=== PATIENT | male | born 1980 | race Caucasian/White ===

== ENCOUNTER 2020-09-25 10:05 | Emergency (ER) | payer OTHER, SELFPAY ==
[2020-09-25 10:05] VITALS: BP 140/91; PULSE 71; RESP 16; TEMP 36.5; O2SAT 99; BMI 29.1
--- NOTE | 2020-09-25 10:25 | RAD_ITS ---
STUDY: X-RAY CHEST REASON FOR EXAM: Male, 39 years old. Chest tightness TECHNIQUE: PA and lateral views of the chest. COMPARISON: Comparison is made with prior study of 08/27/2016. FINDINGS: EKG electrodes are seen. The lungs are clear and expanded. There is no demonstrated pleural abnormality. Normal size heart. Normal mediastinum and monique. Normal visualized pulmonary arteries. Normal visualized aortic arch and descending thoracic aorta. Normal visualized thoracic spine. Normal visualized ribs, clavicles, and shoulders. There is no demonstrated abnormality of the visualized soft tissue structures of the upper abdomen. RAD/Chest PA and Lateral IMPRESSION: Normal x-ray examination of the chest. Electronically Signed: López Martin MD at 11:21 EST , Service support ,
--- NOTE | 2020-09-25 10:41 | EKG12_ITS ---
Test Reason : CP Blood Pressure : / mmHG Vent. Rate : 067 BPM Atrial Rate : 067 BPM P-R Int : 182 ms QRS Dur : 100 ms QT Int : 416 ms P-R-T Axes : 065 -17 004 degrees QTc Int : 439 ms Normal sinus rhythm Normal ECG Confirmed by MIRELLA OLIVA, JEMIMA ([id number]), news videotape editor ZHENG GALLEGO ([id number]) on 09/30/2020 2:17:08 PM Referred By: ISAIAS/REJI Confirmed By:JEMIMA VU MD
[2020-09-25 10:45] LABS: Absolute Lymphocyte Count 2.92 X10^3/uL (0.83-4.51); Absolute Neutrophil Count 3.6 X10^3/uL (2.0-7.7); Basophil# 0.04 X10^3/uL; Basophil% 0.6 % (0-1); Eosinophil# 0.11 X10^3/uL; Eosinophils% 1.5 % (0-5); Hematocrit 47.6 % (40-54); Hemoglobin 16.4 g/dL (13.0-16.5); Lymphocyte # 2.92 X10^3/ul (4.0); Lymphocyte % 40.7 % (19-41); Mean Corp Hgb Conc 34.5 g/dL (32-36); Mean Corpuscular Hgb 28.9 pg (27.0-32.0); Mean Platelet Vol. 9.7 fl (6.2-12.0); NRBC Flagged by Analyzer 0 % (0-5); Neutrophil # 3.57 X10^3/uL (2.7-7.7); Neutrophil % 49.8 % (47-70); Platelet Count 233 K/mm3 (150-450); RBC Distribution Width CV 12.3 % (11.6-14.6); RBC Distribution Width SD 37.2 fl (35.1-43.9); Red Blood Count 5.67 M/mm3 (4.6-6.2); White Blood Count 7.2 K/mm3 (4.4-11.0)
--- NOTE | 2020-09-25 10:51 | ED.VIS.GEN ---
History of Present Illness Chief Complaint: Chest Pain Informant: Patient, Family Narrative: Patient is a 39-year-old previously healthy male who presents to the emergency department for intermittent chest tightness. His initial symptoms started last week. He does not know aggravating or relieving factors. He currently has chest tightness across the anterior chest bilaterally. He denies any shortness of breath. He has not been coughing. No radiation of the pain to his abdomen, back or arms/jaw. He did have a similar episode like this for years ago and had a work-up including echocardiogram and stress test which was negative. He was diagnosed with pneumonia at that time. Has any fevers or chills. No leg swelling or calf pain. No history of CAD, DVT/PEs. Denies any long periods of immobilization. No family history of cardiac disease at a young age. He denies a smoking history. He has not tried taking anything for this. Past Medical History - Allergies and Home Meds Allergies/Adverse Reactions: Allergies No Known Allergies Allergy (Verified 09/25/20 10:07) Primary Care Physician: NOT,DEFINED [NON-STAFF] - Prior records reviewed: Yes Past Medical History: None Surgical History: no surgical history Smoking Status: Never smoker Review of Systems All systems negative except as indicated General: Denies: Chills, Fever, Sweats Eyes: Denies: Visual changes - bilaterally, Diplopia ENT: Denies: Rhinorrhea, Sore throat Cardiovascular: Reports: Chest pain - Tightness. Denies: Palpitations Respiratory: Denies: Dyspnea, Cough, Dyspnea on exertion Gastrointestinal: Denies: Abdominal pain, Nausea, Vomiting, Diarrhea, Melena, Hematochezia Genitourinary: Denies: Dysuria, Hematuria, Frequency Musculoskeletal: Denies: Back pain, Extremity Pain Skin: Denies: Rash, Wounds Neurological: Denies: Headache, Weakness, Numbness Physical Exam Vital Signs/Narrative: Vital Signs Temp Pulse Resp BP Pulse Ox 09/25/20 10:05 97.7 F L 71 16 140/91 H 99 Inital Vital Signs reviewed: Yes General: Well nourished, Well developed, No Acute Distress Head: Normocephalic, Atraumatic Eyes: Perrl, EOMI ENT: Moist mucous membranes, No rhinorrhea Neck: Supple, Nontender Cardiovascular: Regular rate, Regular rhythm, No murmurs Respiratory: No distress, CTA bilaterally, Chest nontender Abdomen: Soft, Nontender, Nondistended, Normal bowel sounds Back: Nontender, Normal Inspection Extremities: Nontender, No edema. Negative for: Calf Tenderness Skin: Normal color, No rash Neurological: Alert, Oriented x3, Cranial nerves II-XII grossly intact, Normal Strength, Normal Sensation Psychological: Normal affect, Normal Mood Diagnostic/Tx/Re-eval Chest X-Ray - ED: 2 View - 2 view x-ray interpreted by myself. Clear lung kuhn bilaterally. No consolidation. No pleural effusions. Normal cardiac silhouette. - EKG Initial EKG Interpretation: - - Rate of 67 bpm and normal sinus rhythm. Normal intervals. Left axis deviation. No significant ST elevations or depressions. No T wave abnormalities. - Medical Decision Making Patient presents to the ED for chest tightness. Upon arrival to the emergency department vital signs within normal limits. Satting 100% on room air. No apparent distress. Patient has a PERC score of 0. He has heart score of 0. Will check basic lab work including EKG, chest x-ray and basic lab work. He believes that there might be some anxiety component to his symptoms. His initial troponin is negative. D-dimer is negative. Chest x-ray does not show any signs of acute cardiopulmonary abnormality. EKG does not show any signs of ischemia or arrhythmia. I do not feel this is ACS, PE or dissection. Patient does not have any wheezing on physical exam but with the chest tightness I did offer an albuterol prescription to see if this gives him any relief. If this does not help he should discontinue it. He is to follow-up with his PCP for further evaluation and work-up of this. Develops any worsening symptoms or concerning symptoms he can return anytime to the emergency department for continued evaluation. Patient is agreeable with this plan. He is discharged home in stable condition. All questions were answered. ED Disposition - Plan for ED Patient: Disposition: Home or Assisted Living Diagnosis: Tightness in chest Instructions: ED Chest Pain, Noncardiac Prescriptions: Albuterol Inhaler [Ventolin Hfa] 1 - 2 puff INHALATION Q4H PRN PRN #1 inhaler PRN Reason: Wheezing Prescription Printed Referrals: NOT,DEFINED [NON-STAFF] - Additional Instructions: Please follow-up with your PCP in the next 2 to 3 days. You can return to the emergency department anytime for worsening or concerning symptoms.
[2020-09-25 10:55] LABS: D-Dimer Quantitative (DVT/PE) <= 0.27 FEU/ug/m (0.27-0.49)
[2020-09-25 11:02] LABS: Anion Gap 5 (5-15); BUN 13 mg/dL (7-18); BUN/Creat Ratio 12.1 RATIO (10-20); Calcium,Total 9.2 mg/dL (8.5-10.1); Chloride 106 mmol/L (98-107); Creatinine, Serum 1.07 mg/dL (0.70-1.30); EST Glomerular Filtration Rate 81 mL/min (>60); Est Glom Filt Rate - Afr Amer 98 mL/min (>60); Estimated Creatinine Clearance 100.73 ml/min; Glucose 101 mg/dL (74-106); Potassium 3.8 mmol/L (3.5-5.1); Sodium Level 140 mmol/L (136-145)
[2020-09-25 11:43] VITALS: BP 131/83; PULSE 76; RESP 15; O2SAT 98
== END 2020-09-25 11:43 | disposition home or self-care (01) ==
PROVIDERS: Emergency Provider Emergency Medicine
DX: R07.89 Other chest pain (principal)
CPT/HCPCS: 71046; 80048; 84484; 85025; 85379; 93005; 99284; A4216

== ENCOUNTER → 2022-02-19 | Outpatient (CLI) | payer OTHER, SELFPAY ==
--- NOTE | 2022-02-19 08:22 | LIP_PTH ---
PATIENT: YINA BERRY LOC: [facility] U#:[id number] AGE/SX: 41/M ROOM: RE02/19/[address]: Dr. Jeffery Dean MD : 1980 BED: DIS: 02/19/2022 SPEC #: [id number] RECD: 02/19/22 10:40 STATUS: [place] REJeovanny #: [id number] STERLING: 02/19/22 08:[address]: Jeffery Dean DEPT: SURGICAL PATHOLOGY RECD BY: Julio Segovia ENTERED: 02/19/22 11:12 SP TYPE: LIPOMA OTHR DR: No Primary Care Phys Tissues: A - Soft tissues, NOS B - Soft tissues, NOS Procedures: Surgery Specimen Level III HEADER OPERATION: Excision of lipomas on right arm x3 PRE-OP DIAGNOSIS: Lipomas TISSUE SUBMITTED: A ? Right arm bicep, B ? Right arm triceps MICROSCOPIC DIAGNOSIS A. Right bicep lipomas, excision: Angiolipomas x2. B. Right triceps lipoma, excision. Angiolipoma. MILENA:beronica 02/20/2022 MICROSCOPIC DESCRIPTION Slides are reviewed. GROSS DESCRIPTION A - Received in fixative is one container labeled with the patient's name and designated right bicep lipoma. The specimen consists of two pieces of lobulated yellow adipose tissue measuring 2.5 x 1.5 x 0.6 cm and 2.5 x 2.5 x 1.5 cm. Sections reveal yellow adipose cut surfaces without area of hemorrhage, necrosis or cystic degeneration. [employer] Foreperson sections are submitted in two cassettes. Cassette 1 contains the smaller piece and 2 contains the larger piece. B - Received in fixative is one container labeled with the patient's name and designated right triceps lipoma. The specimen consists of a piece of yellow adipose tissue measuring 2 x 1.6 x 1 cm. Sections reveal yellow adipose cut surfaces without area of hemorrhage, necrosis or cystic degeneration. Underground Production Foreperson sections are submitted in two cassettes. / MILENA:beronica 02/19/2022 TC:1 CPT: 61192 x2
== END | disposition home or self-care (01) ==
LOC: LABSPEC 10:44
PROVIDERS: Referring Provider Surgery; Visit Provider Surgery
DX: D17.21 Benign lipomatous neoplasm of skin and subcutaneous tissue of right arm (principal)
CPT/HCPCS: 88304

== ENCOUNTER → 2024-11-09 | Outpatient (CLI) | payer OTHER, SELFPAY ==
[2024-11-09 13:00] LABS: Absolute Lymphocyte Count 2.09 X10^3/uL (0.83-4.51); Absolute Neutrophil Count 2.7 X10^3/uL (2.0-7.7); Basophil# 0.03 X10^3/uL; Basophil% 0.6 % (0-1); Eosinophil# 0.03 X10^3/uL; Eosinophils% 0.6 % (0-5); Hematocrit 43.1 % (40-54); Hemoglobin 15.3 g/dL (13.0-16.5); Lymphocyte # 2.09 X10^3/ul (0.83-4.51); Lymphocyte % 39.7 % (19-41); Mean Corp Hgb Conc 35.5 g/dL (32-36); Mean Corpuscular Hgb 30.3 pg (27.0-32.0); Mean Corpuscular Volume 85.3 fL (80-94); Mean Platelet Vol. 9.8 fl (6.2-12.0); Monocyte# 0.41 X10^3/uL; Monocyte% 7.8 % (0-10); NRBC Flagged by Analyzer 0 % (0-5); Neutrophil # 2.69 X10^3/uL (2.7-7.7); Neutrophil % 51.1 % (47-70); Platelet Count 213 K/mm3 (150-450); RBC Distribution Width CV 12.5 % (11.6-14.6); RBC Distribution Width SD 38.5 fl (35.1-43.9); Red Blood Count 5.05 M/mm3 (4.6-6.2); White Blood Count 5.3 K/mm3 (4.4-11.0)
[2024-11-09 13:38] LABS: ALB/GLOB Ratio 1.6 RATIO (0.9-2.4); AST(SGOT) 27 U/L (<=37); Alanine Aminotransfer ALT/SGPT 21 U/L (<=46); Albumin, Serum 4.5 g/dL (3.5-5.0); Alkaline Phosphatase 70 U/L (40-129); Anion Gap 11 (5-15); BUN 17 mg/dL (4-19); BUN/Creat Ratio 17.2 RATIO (10-20); Calcium,Total 9.5 mg/dL (7.6-11.0); Carbon Dioxide 23.4 mmol/L (21.0-32.0); Chloride 105 mmol/L (98-108); Cholesterol 142 mg/dL (<=200); Creatinine, Serum 1.01 mg/dL (0.70-1.20); EST Glomerular Filtration Rate 94 (>60); Globulin 2.7 g/dL (2.2-4.2); Glucose 94 mg/dL (70-99); High Density Lipoprotein 38 mg/dL; Low Density Lipoprotein Calc. 86 mg/dL; Potassium 4.5 mmol/L (3.3-5.1); Protein, Total 7.2 g/dL (5.9-8.4); Sodium Level 139 mmol/L (133-145); Total Bilirubin 0.37 mg/dL (0.00-1.30); Triglycerides 90 mg/dL; Very Low Density Lipoprotein 18 mg/dL (5-40); cholesterol:hdl ratio screen 3.77
== END | disposition home or self-care (01) ==
LOC: BIMLAB 08:36
PROVIDERS: Visit Provider Internal Medicine
DX: Z00.00 Encounter for general adult medical examination without abnormal findings (principal); Z13.6 Encounter for screening for cardiovascular disorders
CPT/HCPCS: 36415; 80053; 80061; 85025

== ENCOUNTER → 2024-12-01 | Outpatient (CLI) | payer OTHER, SELFPAY ==
--- NOTE | 2024-12-01 14:03 | MRI_ITS ---
PROCEDURE: BRAIN W/WO CONTRAST 12/01/2024 REASON FOR EXAM: CHRONIC TINNITUS, LYMPHADENOPATHY TECHNIQUE: Brain MRIwithout and with intravenous contrast with additional dedicated imaging of the IACs. Multiplanar and multisequence images were obtained. CONTRAST: COMPARISON: none FINDINGS: No hyperacute or acute infarctions could be depicted. No obvious enhancing masses. Normal MRI appearance of the cerebral and cerebellar parenchymal signals. Normal MRI appearance of different anatomical parts of the brain stem. Normal appearance of the ventricular system. No shift of midline structures. Right anterior inferior cerebellar artery type II vascular loop. Normal appearance of the 7th and 8th cranial nerves. Normal MRI appearance of the petrous temporal bones and cerebellopontine angles with no obvious masses. Normal MRI appearance of orbital structures, both globes, optic nerves, optic chiasm, optic tracts and optic radiations. Scanned paranasal sinuses show no obvious abnormalities. MRI/Brain W/WO Contrast IMPRESSION: Unremarkable study of the brain with no intracerebral or extra-axial hematomas or obvious ischemic changes. Right anterior inferior cerebellar artery type II vascular loop. [facility] [address]
== END | disposition home or self-care (01) ==
PROVIDERS: Referring Provider Internal Medicine; Visit Provider Internal Medicine
DX: H93.12 Tinnitus, left ear (principal); R59.0 Localized enlarged lymph nodes
CPT/HCPCS: 70553; A9575

== ENCOUNTER 2025-02-06 08:19 | Day surgery (SDC) | payer OTHER, SELFPAY ==
[2025-02-06] VITALS (8 sets, daily range): BP systolic 97–131; BP diastolic 65–84; PULSE 62–78; RESP 16–17; TEMP 36.2; O2SAT 95–100; BMI 27.8
[2025-02-06] MEDS: Lactated Ringers 1,000 ML 15 ML IV (08:44)
--- NOTE | 2025-02-06 08:55 | PCM.PRE.AN2 ---
ASA Classification* ASA Classification ASA Classification: 2 Assessment & Plan Anesthesia* Anesthesia Assessment Anesthesia Assessment: Discussed sedation and/or anesthesia options, risks, benefits, and alternatives with patient/parents/legal guardian/POA. Questions invited. The patient/parents/legal guardian/POA seems to understand and agrees to proceed with anesthesia plan. Reviewed the physical assessment, medical history, allergy history and patient home medications list prior to surgery/procedure/anesthetic and documented any changes. Performed airway and anesthesia risk assessments. Anesthesia Type Anesthesia Type: MAC History Source History Obtained from:: Patient and Chart Anesthesia Focused Assessment* Temperature: 97.2 F Pulse Rate: 78 Blood Pressure: 131/80 Respiratory Rate: 17 Pulse Ox: 99 Oxygen Delivery Method: Room Air Airway Assessment Mouth opens: >3 cm Mallampati Score: II Teeth Condition: Caps/Crowns (Patient has several crowns. They are all tight.) Neck Range of motion (ROM): Full ROM Labs Anesthesia Preop lab: CBC WBC 5.3 K/mm3 (4.4-11.0) 11/09/24 08:37 11/09/24 RBC 5.05 M/mm3 (4.6-6.2) 11/09/24 08:37 11/09/24 Hgb 15.3 g/dL (13.0-16.5) 11/09/24 08:37 11/09/24 Hct 43.1 % (40-54) 11/09/24 08:37 11/09/24 Plt Count 213 K/mm3 (150-450) 11/09/24 08:37 11/09/24 CHEMISTRY Potassium 4.5 mmol/L (3.3-5.1) 11/09/24 08:37 11/09/24 Sodium 139 mmol/L (133-145) 11/09/24 08:37 11/09/24 BUN 17 mg/dL (4-19) 11/09/24 08:37 11/09/24 Creatinine 1.01 mg/dL (0.70-1.20) 11/09/24 08:37 11/09/24 Glucose 94 mg/dL (70-99) 11/09/24 08:37 11/09/24 TSH 0.79 uIU/mL (0.358-3.74) 08/27/16 14:18 08/27/16 COAG Pre-Assessment Diagnosis/Proposed Procedure Planned Operative Procedure(s): COLONOSCOPY Anesthesia History Anesthesia History - box person: Anesthesia History - box person Hx Hospitalization No 02/01/25 12:52 Any Problems With Anesthesia No 02/01/25 12:52 Cholinesterase deficiency No 02/01/25 12:52 You/Your Family Experience No 02/01/25 12:52 fever (hyperthermia) with Relationship Recent Exposure to Contagious No 02/06/25 08:41 Disease Does patient have nerve No 02/01/25 12:52 stimulator Patient instructed to have device shut off --Does patient have Pacemaker No 02/06/25 08:41 or ICD? When Was Last Pacemaker Check QUESTION #4 FULL TEXT: You/Your Family Experience fever (hyperthermia) with Anesthesia Last Oral Intake Last Oral intake: Last Oral Intake NPO since 00:00 02/06/25 08:41 Meds taken in AM with sips of No 02/06/25 08:41 water? Meds patient instructed to take am of surgery PONV PONV - box person: PONV - box person Female No 02/01/25 12:52 HX of Motion Sickness No 02/01/25 12:52 HX of N/V After Surgery No 02/01/25 12:52 Non-Smoker Yes 02/01/25 12:52 Duration of Surgery greater No 02/01/25 12:52 than 60 minutes Number of Risk Factors 1 02/01/25 12:52 PONV Score Low Risk 02/01/25 12:52 Height & Weight Height & Weight: Anesthesia: Height & Weight Height 6 ft 02/06/25 08:41 Weight: 93 kg 02/06/25 08:41 Body Mass Index (BMI) 27.8 02/06/25 08:41 Respiratory Assessment Respiratory Assessment - box person: Respiratory Tract Infection Hx - box person Hx Respiratory Tract Infection No 02/01/25 12:52 STOP Sleep Apnea STOP Sleep Apnea - box person: STOP Sleep Apnea - box person Hx Hypertension No 02/01/25 12:52 Hx Sleep Apnea No 02/01/25 12:52 CPAP BIPAP Do you snore loudly (louder Yes 02/01/25 12:52 than talking or can be heard Do you often feel tired/ No 02/01/25 12:52 fatigued/ sleepy during daytime? Has anyone observed you stop No 02/01/25 12:52 breathing during sleep? STOP Results Negative 02/01/25 12:52 QUESTION #5 FULL TEXT : Do you snore loudly (louder than talking or can be heard through closed doors)? 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 Specify any problems Hx of Preganancy in last 3 N/A 02/01/25 12:52 Months Nurse Filling Out Transfusion [email or web address] 02/01/25 12:52 & Questions: Date: 02/01/25 02/01/25 12:52 Time: 12:53 02/01/25 12:52 Patient unable to answer at this time (ie. confused, unrespo /Reproduction History /Reproductive History - box person: /Reproductive Hx- box person Hx Now No 02/01/25 12:52 Gestational Age (in weeks): EDC: Hx Hx Para Hx Section SAB No 02/01/25 12:52 Active Medications Active Medications: Current Medications Generic Name Dose Route Start Last Admin Trade Name Freq PRN Reason Stop Dose Admin Lactated Ringer's 1,000 mls @ 15 mls/hr 02/06/25 08:30 02/06/25 08:44 IV 15 mls/hr .Q48H ANJANA Administration PFSH Medical History Wears glasses Wears contact lenses Non-smoker History of echocardiogram History of stress test Pneumonia Chronic headaches Multiple lipomas Hemorrhoids Home Medications ?Medication ?Instructions ?Recorded ?Last Taken ?Type ivyazoin-zagftkkq-rgepw acid 400 1 tab PO DAILY 11/09/24 02/05/25 History mcg-vit K 20 mcg-lycop 300 mcg tablet (Men's One Daily) Lactobacillus acidophilus 10 100 mmu cells PO DAILY 02/01/25 02/05/25 History billion cell capsule (NewFlora) wheat germ oil 45 mg PO DAILY 02/01/25 02/05/25 History Allergy/AdvReac Type Severity Reaction Status Date / Time No Known Allergies Allergy Verified 02/06/25 08:40 Family History Mother Colon cancer, Onset Age: 60 Brother Cancer skin Grandmother Colon cancer Surgical History Hx of lipoma Social History adopted: No household members: spouse number of children: 0 current occupational status: employed 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 animals: No sexually active: Yes Smoking Status: Never smoker alcohol intake: current alcohol intake frequency: a few times a week details: when used typically under 3 drinks substance use type: does not use caffeine: Yes (4) Type: coffee frequency: 5-6 times per week do you feel safe at home: Yes Review of Systems (Anesthesia) ROS Narrative System reviewed and no additional complaints, except as documented.
--- NOTE | 2025-02-06 08:55 | PCM.PRE.AN2 ---
ASA Classification* ASA Classification ASA Classification: 2 Assessment & Plan Anesthesia* Anesthesia Assessment Anesthesia Assessment: Discussed sedation and/or anesthesia options, risks, benefits, and alternatives with patient/parents/legal guardian/POA. Questions invited. The patient/parents/legal guardian/POA seems to understand and agrees to proceed with anesthesia plan. Reviewed the physical assessment, medical history, allergy history and patient home medications list prior to surgery/procedure/anesthetic and documented any changes. Performed airway and anesthesia risk assessments. Anesthesia Type Anesthesia Type: MAC History Source History Obtained from:: Patient and Chart Anesthesia Focused Assessment* Temperature: 97.2 F Pulse Rate: 78 Blood Pressure: 131/80 Respiratory Rate: 17 Pulse Ox: 99 Oxygen Delivery Method: Room Air Airway Assessment Mouth opens: >3 cm Mallampati Score: II Teeth Condition: Caps/Crowns (Patient has several crowns. They are all tight.) Neck Range of motion (ROM): Full ROM Labs Anesthesia Preop lab: CBC WBC 5.3 K/mm3 (4.4-11.0) 11/09/24 08:37 11/09/24 RBC 5.05 M/mm3 (4.6-6.2) 11/09/24 08:37 11/09/24 Hgb 15.3 g/dL (13.0-16.5) 11/09/24 08:37 11/09/24 Hct 43.1 % (40-54) 11/09/24 08:37 11/09/24 Plt Count 213 K/mm3 (150-450) 11/09/24 08:37 11/09/24 CHEMISTRY Potassium 4.5 mmol/L (3.3-5.1) 11/09/24 08:37 11/09/24 Sodium 139 mmol/L (133-145) 11/09/24 08:37 11/09/24 BUN 17 mg/dL (4-19) 11/09/24 08:37 11/09/24 Creatinine 1.01 mg/dL (0.70-1.20) 11/09/24 08:37 11/09/24 Glucose 94 mg/dL (70-99) 11/09/24 08:37 11/09/24 TSH 0.79 uIU/mL (0.358-3.74) 08/27/16 14:18 08/27/16 COAG Pre-Assessment Diagnosis/Proposed Procedure Planned Operative Procedure(s): COLONOSCOPY Anesthesia History Anesthesia History - bill of lading clerk: Anesthesia History - bill of lading clerk Hx Hospitalization No 02/01/25 12:52 Any Problems With Anesthesia No 02/01/25 12:52 Cholinesterase deficiency No 02/01/25 12:52 You/Your Family Experience No 02/01/25 12:52 fever (hyperthermia) with Relationship Recent Exposure to Contagious No 02/06/25 08:41 Disease Does patient have nerve No 02/01/25 12:52 stimulator Patient instructed to have device shut off --Does patient have Pacemaker No 02/06/25 08:41 or ICD? When Was Last Pacemaker Check QUESTION #4 FULL TEXT: You/Your Family Experience fever (hyperthermia) with Anesthesia Last Oral Intake Last Oral intake: Last Oral Intake NPO since 00:00 02/06/25 08:41 Meds taken in AM with sips of No 02/06/25 08:41 water? Meds patient instructed to take am of surgery PONV PONV - bill of lading clerk: PONV - bill of lading clerk Female No 02/01/25 12:52 HX of Motion Sickness No 02/01/25 12:52 HX of N/V After Surgery No 02/01/25 12:52 Non-Smoker Yes 02/01/25 12:52 Duration of Surgery greater No 02/01/25 12:52 than 60 minutes Number of Risk Factors 1 02/01/25 12:52 PONV Score Low Risk 02/01/25 12:52 Height & Weight Height & Weight: Anesthesia: Height & Weight Height 6 ft 02/06/25 08:41 Weight: 93 kg 02/06/25 08:41 Body Mass Index (BMI) 27.8 02/06/25 08:41 Respiratory Assessment Respiratory Assessment - bill of lading clerk: Respiratory Tract Infection Hx - bill of lading clerk Hx Respiratory Tract Infection No 02/01/25 12:52 STOP Sleep Apnea STOP Sleep Apnea - bill of lading clerk: STOP Sleep Apnea - bill of lading clerk Hx Hypertension No 02/01/25 12:52 Hx Sleep Apnea No 02/01/25 12:52 CPAP BIPAP Do you snore loudly (louder Yes 02/01/25 12:52 than talking or can be heard Do you often feel tired/ No 02/01/25 12:52 fatigued/ sleepy during daytime? Has anyone observed you stop No 02/01/25 12:52 breathing during sleep? STOP Results Negative 02/01/25 12:52 QUESTION #5 FULL TEXT : Do you snore loudly (louder than talking or can be heard through closed doors)? 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 Specify any problems Hx of Preganancy in last 3 N/A 02/01/25 12:52 Months Nurse Filling Out Transfusion [email or web address] 02/01/25 12:52 & Questions: Date: 02/01/25 02/01/25 12:52 Time: 12:53 02/01/25 12:52 Patient unable to answer at this time (ie. confused, unrespo /Reproduction History /Reproductive History - bill of lading clerk: /Reproductive Hx- bill of lading clerk Hx Now No 02/01/25 12:52 Gestational Age (in weeks): EDC: Hx Hx Para Hx Section SAB No 02/01/25 12:52 Active Medications Active Medications: Current Medications Generic Name Dose Route Start Last Admin Trade Name Freq PRN Reason Stop Dose Admin Lactated Ringer's 1,000 mls @ 15 mls/hr 02/06/25 08:30 02/06/25 08:44 IV 15 mls/hr .Q48H ANJANA Administration PFSH Medical History Wears glasses Wears contact lenses Non-smoker History of echocardiogram History of stress test Pneumonia Chronic headaches Multiple lipomas Hemorrhoids Home Medications ?Medication ?Instructions ?Recorded ?Last Taken ?Type gaqurwop-gktqblje-sqrkh acid 400 1 tab PO DAILY 11/09/24 02/05/25 History mcg-vit K 20 mcg-lycop 300 mcg tablet (Men's One Daily) Lactobacillus acidophilus 10 100 mmu cells PO DAILY 02/01/25 02/05/25 History billion cell capsule (NewFlora) wheat germ oil 45 mg PO DAILY 02/01/25 02/05/25 History Allergy/AdvReac Type Severity Reaction Status Date / Time No Known Allergies Allergy Verified 02/06/25 08:40 Family History Mother Colon cancer, Onset Age: 60 Brother Cancer skin Grandmother Colon cancer Surgical History Hx of lipoma Social History adopted: No household members: spouse number of children: 0 current occupational status: employed 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 animals: No sexually active: Yes Smoking Status: Never smoker alcohol intake: current alcohol intake frequency: a few times a week details: when used typically under 3 drinks substance use type: does not use caffeine: Yes (4) Type: coffee frequency: 5-6 times per week do you feel safe at home: Yes Review of Systems (Anesthesia) ROS Narrative System reviewed and no additional complaints, except as documented.
--- NOTE | 2025-02-06 09:41 | HP.PCM_ITS ---
HPI - General HPI Narrative YINA BERRY, is a 44 M who presents for screening colonoscopy. The patient has never had a colonoscopy in the past. He denies abdominal pain or blood in the stool. He does have family history of colon cancer in his mother in her 60s. REPLACED BY [facility] Medical History Wears glasses Wears contact lenses Non-smoker History of echocardiogram History of stress test Pneumonia Chronic headaches Multiple lipomas Hemorrhoids Home Medications ?Medication ?Instructions ?Recorded ?Last Taken ?Type hgksqvkj-rnakassy-dvnft acid 400 1 tab PO DAILY 02/05/25 History mcg-vit K 20 mcg-lycop 300 mcg tablet (Men's One Daily) Lactobacillus acidophilus 10 100 mmu cells PO DAILY 02/05/25 History billion cell capsule (NewFlora) wheat germ oil 45 mg PO DAILY 02/01/2501/23 History Allergy/AdvReac Type Severity Reaction Status Date / Time No Known Allergies Allergy Verified 02/06/25 08:40 Family History Mother Colon cancer, Onset Age: 60 Brother Cancer skin Grandmother Colon cancer Surgical History Hx of lipoma Social History adopted: No household members: spouse number of children: 0 current occupational status: employed 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 animals: No sexually active: Yes Smoking Status: Never smoker alcohol intake: current alcohol intake frequency: a few times a week details: when used typically under 3 drinks substance use type: does not use caffeine: Yes (4) Type: coffee frequency: 5-6 times per week do you feel safe at home: Yes Past Medical/Surgical History Planned Operation Planned Operative Procedure(s): COLONOSCOPY Previous Hospitalizations/Surgeries HX Hospitalizations: No Any Problems With Anesthesia: No You/Your Family Experience Fever (Hyperthermia) With Anes: No Cholinesterase deficiency: No Cardiovascular Hx Hypertension: No Respiratory Hx Sleep Apnea: No Hx Respiratory Tract Infection/Cold (presently): No Do You Snore Loudly (louder than talking or can be heard): Yes Do You Often Feel Tired/ Fatigued/ Sleepy Dring Daytime?: No Has Anyone Observed You Stop Breathing During Sleep?: No Result (for STOP score): Negative Smoking Status: Never smoker Neurological Does patient have nerve stimulator: No Reproduction : No Miscellaneous Recent Exposure to Contagious Disease: No Allergies No Known Allergies Allergy (Verified 02/06/25 08:40) Discharge After D/C, Where Do you Plan to Go: Return Home Vital Signs Vital Signs Vital Signs: 02/06/25 08:41 02/06/25 08:41 02/06/25 09:00 Temperature 97.2 F L 97.2 F L Temperature Source Temporal Pulse Rate 78 78 Respiratory Rate 17 17 Respiratory Pattern Normal Blood Pressure 131/80 H 131/80 H Blood Pressure Mean 97 Blood Pressure Source Monitor Blood Pressure Position Semi-Fowlers Blood Pressure Location Left Arm Pulse Ox 99 99 Oxygen Delivery Method Room Air Room Air Weight Weight: 205 lb 0.478 oz Body Mass Index (BMI) 27.8 Physical Exam Const alert and oriented x3 HEENT normocephalic Eyes PERRL Resp normal respiratory effort and normal air movement Cardio regular rate and regular rhythm GI soft to palpation, non-tender and non-distended Extremity normal to inspection Assessment & Plan Assessment/Plan (1) Screen for colon cancer: PLAN: I explained endoscopy in detail to the patient. I explained the risks inc luding but not limited to stroke or heart attack with anesthesia, perforation of the GI tract, bleeding, infection. I explained that any of these could necessitate further emergency surgery. The patient understands and all questions were answered sufficiently. The patient wishes to proceed with procedure. Jeffery Dean MD Pager: [facility] [address] [place] [address], [address] [place] [address] Office: Surgery Risks - Colonoscopy Risks Include but are not Limited To: Risks include but are not limited to: Bleeding, perforation requiring further surgery, inability to complete colonoscopy requiring barium enema.
--- NOTE | 2025-02-06 09:41 | HP.PCM_ITS ---
HPI - General HPI Narrative YINA BERRY, is a 44 M who presents for screening colonoscopy. The patient has never had a colonoscopy in the past. He denies abdominal pain or blood in the stool. He does have family history of colon cancer in his mother in her 60s. [facility] Medical History Wears glasses Wears contact lenses Non-smoker History of echocardiogram History of stress test Pneumonia Chronic headaches Multiple lipomas Hemorrhoids Home Medications ?Medication ?Instructions ?Recorded ?Last Taken ?Type mckmwsyn-iucfwafm-ruqty acid 400 1 tab PO DAILY 02/05/25 History mcg-vit K 20 mcg-lycop 300 mcg tablet (Men's One Daily) Lactobacillus acidophilus 10 100 mmu cells PO DAILY 02/05/25 History billion cell capsule (NewFlora) wheat germ oil 45 mg PO DAILY 02/01/2501/23 History Allergy/AdvReac Type Severity Reaction Status Date / Time No Known Allergies Allergy Verified 02/06/25 08:40 Family History Mother Colon cancer, Onset Age: 60 Brother Cancer skin Grandmother Colon cancer Surgical History Hx of lipoma Social History adopted: No household members: spouse number of children: 0 current occupational status: employed 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 animals: No sexually active: Yes Smoking Status: Never smoker alcohol intake: current alcohol intake frequency: a few times a week details: when used typically under 3 drinks substance use type: does not use caffeine: Yes (4) Type: coffee frequency: 5-6 times per week do you feel safe at home: Yes Past Medical/Surgical History Planned Operation Planned Operative Procedure(s): COLONOSCOPY Previous Hospitalizations/Surgeries HX Hospitalizations: No Any Problems With Anesthesia: No You/Your Family Experience Fever (Hyperthermia) With Anes: No Cholinesterase deficiency: No Cardiovascular Hx Hypertension: No Respiratory Hx Sleep Apnea: No Hx Respiratory Tract Infection/Cold (presently): No Do You Snore Loudly (louder than talking or can be heard): Yes Do You Often Feel Tired/ Fatigued/ Sleepy Dring Daytime?: No Has Anyone Observed You Stop Breathing During Sleep?: No Result (for STOP score): Negative Smoking Status: Never smoker Neurological Does patient have nerve stimulator: No Reproduction : No Miscellaneous Recent Exposure to Contagious Disease: No Allergies No Known Allergies Allergy (Verified 02/06/25 08:40) Discharge After D/C, Where Do you Plan to Go: Return Home Vital Signs Vital Signs Vital Signs: 02/06/25 08:41 02/06/25 08:41 02/06/25 09:00 Temperature 97.2 F L 97.2 F L Temperature Source Temporal Pulse Rate 78 78 Respiratory Rate 17 17 Respiratory Pattern Normal Blood Pressure 131/80 H 131/80 H Blood Pressure Mean 97 Blood Pressure Source Monitor Blood Pressure Position Semi-Fowlers Blood Pressure Location Left Arm Pulse Ox 99 99 Oxygen Delivery Method Room Air Room Air Weight Weight: 205 lb 0.478 oz Body Mass Index (BMI) 27.8 Physical Exam Const alert and oriented x3 HEENT normocephalic Eyes PERRL Resp normal respiratory effort and normal air movement Cardio regular rate and regular rhythm GI soft to palpation, non-tender and non-distended Extremity normal to inspection Assessment & Plan Assessment/Plan (1) Screen for colon cancer: PLAN: I explained endoscopy in detail to the patient. I explained the risks inc luding but not limited to stroke or heart attack with anesthesia, perforation of the GI tract, bleeding, infection. I explained that any of these could necessitate further emergency surgery. The patient understands and all questions were answered sufficiently. The patient wishes to proceed with procedure. Jeffery Dean MD Pager: [facility] [address] [place] [address], [address] [place] [address] Office: Surgery Risks - Colonoscopy Risks Include but are not Limited To: Risks include but are not limited to: Bleeding, perforation requiring further surgery, inability to complete colonoscopy requiring barium enema.
--- NOTE | 2025-02-06 10:15 | OP.CCLET_ITS ---
02/06/2025 Jolanta Blue Md Re : Colonoscopy procedure for Randal Lawson Dear Mirza This procedure was performed on Thursday, February 06, 2025. My impressions and recommendations are as follows: Impressions : - The entire examined colon is normal on direct and retroflexion views. - No specimens collected. Recommendations : - Discharge patient to home. - Resume previous diet. - Continue present medications. - Repeat colonoscopy in 10 years for screening purposes. My findings are described in the full procedure note, which is enclosed. If I can be of further assistance, please feel free to contact me at Doctor phone number(s): , Work: . Sincerely, Jeffery Dean MD 02/06/2025 10:15:10 AM This report has been signed electronically.
--- NOTE | 2025-02-06 10:15 | OP.CCLET_ITS ---
02/06/2025 Jolanta Blue Md Re : Colonoscopy procedure for Randal Lawson Dear Mirza This procedure was performed on Thursday, February 06, 2025. My impressions and recommendations are as follows: Impressions : - The entire examined colon is normal on direct and retroflexion views. - No specimens collected. Recommendations : - Discharge patient to home. - Resume previous diet. - Continue present medications. - Repeat colonoscopy in 10 years for screening purposes. My findings are described in the full procedure note, which is enclosed. If I can be of further assistance, please feel free to contact me at Doctor phone number(s): , Work: . Sincerely, Jeffery Dena MD 02/06/2025 10:15:10 AM This report has been signed electronically.
--- NOTE | 2025-02-06 10:15 | OP.COLON_ITS ---
Patient Name: Randal Lawson Procedure Date: 02/06/2025 9:47 AM Date of : 1980 Age: 44 Procedure: Colonoscopy Indications: Screening for colorectal malignant neoplasm Providers: Jeffery Dean MD Referring MD: Jolanta Blue Md Medicines: Propofol per Anesthesia Patient Profile: This is a 44 year old male. Refer to note in patient chart for documentation of history and physical. Last Colonoscopy: none. The patient's first colonoscopy is today. Complications: No immediate complications. Procedure: Pre-Anesthesia Assessment: - Prior to the procedure, a History and Physical was performed, and patient medications and allergies were reviewed. The patient's tolerance of previous anesthesia was also reviewed. The risks and benefits of the procedure and the sedation options and risks were discussed with the patient. All questions were answered, and informed consent was obtained. Prior Anticoagulants: The patient has taken no anticoagulant or antiplatelet agents. After reviewing the risks and benefits, the patient was deemed in satisfactory condition to undergo the procedure. After I obtained informed consent, the scope was passed under direct vision. Throughout the procedure, the patient's blood pressure, pulse, and oxygen saturations were monitored continuously. The Colonoscope was introduced through the anus and advanced to the cecum, identified by appendiceal orifice and ileocecal valve. The colonoscopy was performed without difficulty. The patient tolerated the procedure well. The quality of the bowel preparation was good. The ileocecal valve, appendiceal orifice, and rectum were photographed. Scope In: 9:57:31 AM Scope Withdrawal Time 0 hours 6 minutes 14 seconds Scope Out: 10:12:59 AM Total Procedure Duration Time 0 hours 15 minutes 28 seconds Findings: The entire examined colon appeared normal on direct and retroflexion views. Impression: - The entire examined colon is normal on direct and retroflexion views. - No specimens collected. Recommendation: - Discharge patient to home. - Resume previous diet. - Continue present medications. - Repeat colonoscopy in 10 years for screening purposes. Procedure Code(s): --- Professional --- 91909, Colonoscopy, flexible; diagnostic, including collection of specimen(s) by brushing or washing, when performed (separate procedure) Diagnosis Code(s): --- Professional --- Z12.11, Encounter for screening for malignant neoplasm of colon CPT copyright 2021 [employer]. All rights reserved. The codes documented in this report are preliminary and upon ticket collector or usher review may be revised to meet current compliance requirements. Jefefry Dean MD 02/06/2025 10:15:10 AM This report has been signed electronically. Number of Addenda: 0 Note Initiated On: 02/06/2025 9:47 AM
--- NOTE | 2025-02-06 10:15 | OP.COLON_ITS ---
Patient Name: Randal Lawson Procedure Date: 02/06/2025 9:47 AM Date of : 1980 Age: 44 Procedure: Colonoscopy Indications: Screening for colorectal malignant neoplasm Providers: Jeffery Dean MD Referring MD: Jolanta Blue Md Medicines: Propofol per Anesthesia Patient Profile: This is a 44 year old male. Refer to note in patient chart for documentation of history and physical. Last Colonoscopy: none. The patient's first colonoscopy is today. Complications: No immediate complications. Procedure: Pre-Anesthesia Assessment: - Prior to the procedure, a History and Physical was performed, and patient medications and allergies were reviewed. The patient's tolerance of previous anesthesia was also reviewed. The risks and benefits of the procedure and the sedation options and risks were discussed with the patient. All questions were answered, and informed consent was obtained. Prior Anticoagulants: The patient has taken no anticoagulant or antiplatelet agents. After reviewing the risks and benefits, the patient was deemed in satisfactory condition to undergo the procedure. After I obtained informed consent, the scope was passed under direct vision. Throughout the procedure, the patient's blood pressure, pulse, and oxygen saturations were monitored continuously. The Colonoscope was introduced through the anus and advanced to the cecum, identified by appendiceal orifice and ileocecal valve. The colonoscopy was performed without difficulty. The patient tolerated the procedure well. The quality of the bowel preparation was good. The ileocecal valve, appendiceal orifice, and rectum were photographed. Scope In: 9:57:31 AM Scope Withdrawal Time 0 hours 6 minutes 14 seconds Scope Out: 10:12:59 AM Total Procedure Duration Time 0 hours 15 minutes 28 seconds Findings: The entire examined colon appeared normal on direct and retroflexion views. Impression: - The entire examined colon is normal on direct and retroflexion views. - No specimens collected. Recommendation: - Discharge patient to home. - Resume previous diet. - Continue present medications. - Repeat colonoscopy in 10 years for screening purposes. Procedure Code(s): --- Professional --- 68562, Colonoscopy, flexible; diagnostic, including collection of specimen(s) by brushing or washing, when performed (separate procedure) Diagnosis Code(s): --- Professional --- Z12.11, Encounter for screening for malignant neoplasm of colon CPT copyright 2021 [employer]. All rights reserved. The codes documented in this report are preliminary and upon orbitread operator review may be revised to meet current compliance requirements. Jeffery Dean MD 02/06/2025 10:15:10 AM This report has been signed electronically. Number of Addenda: 0 Note Initiated On: 02/06/2025 9:47 AM
--- NOTE | 2025-02-06 10:21 | PCM.POST.ANE ---
Anesthesia: Postop Eval I Current Vital Signs Temperature: 97.2 F Pulse Rate: 64 Blood Pressure: 116/84 Respiratory Rate: 16 Pulse Ox: 98 Oxygen Delivery Method: Room Air Assessment Airway patent: Yes Spontaneous unlabored respirations: Yes Mental status: Awake and Calm nausea: No Vomiting: No Anesthesia Complication: No Fluid Hydration Crystalloid volume administer (ml): 600 Total IV fluid infused: 600 Progress Note Anesthesia document: Postop Eval 1 completed: Yes
--- NOTE | 2025-02-06 19:07 | PCM.POSTANE2 ---
Anesthesia Postop Eval I Sum Postop Eval Completion status Anesthesia document: Postop Eval 1 completed: Yes Anesthesia Postop Eval I Summary Anesthesia Postop Eval I Summary: Anesthesia Postop Eval I: Assessment Summary Airway patent Yes 02/06/25 10:23 [email or web address] Spontaneous unlabored Yes 02/06/25 10:23 [email or web address] respirations Mental status Awake,Calm 02/06/25 10:23 [email or web address] nausea No 02/06/25 10:23 [email or web address] Vomiting No 02/06/25 10:23 [email or web address] Anesthesia Postop Eval I: Fluid Summary Crystalloid volume administer 600 02/06/25 10:23 [email or web address] (ml) Colloids volume administered ( ml) Blood Product volume administered (ml) Total IV fluid infused 600 02/06/25 10:23 [email or web address] Anesthesia Postop Eval I: Summary Notes Anesthesia Complication No 02/06/25 10:23 [email or web address] Anesthesia Complication Comment: Post-operative progress note Anesthesia: Postop Eval II Evaluation Mental status: Awake and Calm Pain Level: 0 nausea: No Vomiting: No Complications Anesthesia Complication: No
== END 2025-02-06 10:49 | disposition home or self-care (01) ==
LOC: EN 08:21 → AC 08:22
PROVIDERS: PCP Internal Medicine; Referring Provider Internal Medicine; Visit Provider Surgery
PROC: 0DJD8ZZ Inspection of Lower Intestinal Tract, Via Natural or Artificial Opening Endoscopic (ICD-10-PCS; CPT 45378; principal; 2025-02-06 09:25)
DX: Z12.11 Encounter for screening for malignant neoplasm of colon (principal)
CPT/HCPCS: 45378; J2405